=== PATIENT | male | born 1950 | race Caucasian/White ===

== ENCOUNTER 2018-08-08 13:20 | Outpatient (CLI) | payer BC ==
[~2018-08-08 13:20] MED LIST: Gadobenate Dimeglumine 529 MG/1 ML (20ML VIAL) ONE
--- NOTE | 2018-08-08 19:29 | RAD ---
LEFT SHOULDER THREE VIEWS: History: Shoulder pain. FINDINGS: No fracture or dislocation. AC joint normally aligned. Mild degenerative change. There is evidence of mild spurring from the humeral head. Mild hypertrophic change at the AC joint is also noted. IMPRESSION: Mild degenerative change. POS: C
--- NOTE | 2018-08-08 20:09 | MRI ---
POST ARTHROGRAM MRI LEFT SHOULDER WITH CONTRAST: HISTORY: Shoulder pain. COMPARISON: MRI study from 03/06/2013. FINDINGS: Some mild hypertrophic changes of the AC joint. The acromion is laterally downsloping. There is contrast within the subcoracoid bursa, and also very minimal contrast within the anterior as pect of the subacromial bursa, and also fluid density seen within the subacromial bursa. I do not se e any contrast on the T1 weighted sequence, within the actual rotator cuff, and I believe the minimal contrast that is within the subacromial bursa is probably related to a communication between the sub coracoid bursa and the subacromial bursa, with some inadvertent injection of contrast, both into the subcoracoid bursa, as well as good opacification of the joint space. There is an undersurface tear, which is at the junction of the supraspinatus and infraspinatus tendon , and it appears to be more of a delaminating type tear. There is also some bursal-sided irregularit y to the tendon, more along the anterior insertion of the supraspinatus tendon. The subscapularis mu scle and tendon are intact, and the biceps tendon is normal in position, with in the bicipital groove . There is motion artifact, which degrades detail, but there appears to be some degenerative fraying of the posterior-superior labrum. There are some mild arthritic changes of the glenohumeral joint spac e. IMPRESSION: 1. Undersurface interstitial tear involving the junction of the supraspinatus and infraspinatus tend on. This is more of a delaminating tear and actually fairly similar in appearance to a 03/06/2013 st udy. This appears to begin along the undersurface and extends approximately 2 cm into the substance of the conjoined tendon. I do not see a definite full-thickness component to this tear, as discussed above. There is a minimal amount of contrast within the subacromial bursa, but I believe this is pr obably related to communication with the subcoracoid bursa. I do not see any actual contrast crossin g either the supraspinatus or infraspinatus tendons to explain the minimal contrast within the subacr omial bursa and, therefore, think it is related to injection and not a full-thickness tear. 2. Degenerative fraying of the posterior-superior labrum. POS: [facility]
== END 2018-08-08 13:21 | disposition home or self-care (01) ==
LOC: RAD 13:20
PROVIDERS: ATTEND Orthopaedic Surgery Hand Surgery
DX: M25.512 Pain in left shoulder (principal); M19.012 Primary osteoarthritis, left shoulder; M75.102 Unspecified rotator cuff tear or rupture of left shoulder, not specified as traumatic
CPT/HCPCS: 23350; A9577